=== PATIENT | male | born 1960 | race Caucasian/White ===

== ENCOUNTER 2017-04-29 16:32 | Emergency (ER) | payer MEDICAID ==
[~2017-04-29] VITALS: Ht 180.3 cm; Wt 59.0 kg
[~2017-04-29 16:32] MED LIST: CARAFATE1 G1 ORAL; NORCO 5-325 TA1 EACH ORAL; PHENOBARBITAL30 MG ORAL; ZOFRAN4 M1 ORAL
[2017-04-29] MEDS ORDERED: Methocarbamol 750mg tab ORAL ONE (17:30)
[2017-04-29] MEDS ORDERED: PHENobarbital 32.4mg tab ORAL ONE (17:45)
[2017-04-29] MEDS ORDERED: IBUPROFEN600 MG ORAL (19:55)
[2017-04-29 20:07] VITALS: BP 135/88
[2017-04-29 20:12] VITALS: BP 135/88
--- NOTE | 2017-04-29 21:19 | Emergency Room Report ---
History of Present Illness General Chief Complaint: Back Pain-No Injury Source: Patient, EMS Present Illness HPI The patient is a 56-year-old male presenting for back pain. He states that the pain occurred when moving from his wheelchair to the floor. This began 2 days prior. Pain is a 10 out of 10 dull ache to the lower back and does not radiate. Worse with movement. He denies any numbness or tingling. He denies incontinence. He denies any other symptoms including fever or chills Allergies: Coded Allergies: LEVETIRACETAM (Unverified Allergy, Unknown, 04/27/16) PENICILLINS (Unverified Allergy, Unknown, 09/14/14) PHENYTOIN (Unverified Allergy, Unknown, 04/27/16) Patient History Past Medical History: see triage record Pertinent Family History: none Reviewed Nursing Documentation: PMH: Agreed, PSxH: Agreed Nursing Documentation-PMH Past Medical History: No History, Except For History Of Psychiatric Problem: Yes Hx Seizures: Yes Review of Systems All Other Systems: negative except mentioned in HPI Physical Exam Vital Signs Date Time Temp Pulse Resp B/P (MAP) Pulse Ox O2 Delivery O2 Flow Rate FiO2 04/29/17 16:31 98.2 110 20 149/98 98 Room Air Sp02 EP Interpretation: reviewed, normal General Appearance: no apparent distress, alert, GCS 15, non-toxic Head: normocephalic, atraumatic Eyes: bilateral eye normal inspection, bilateral eye PERRL ENT: hearing grossly normal, normal pharynx, no angioedema, normal voice Neck: full range of motion, supple/symm/no masses Gastrointestinal: normal bowel sounds, non tender, soft, non-distended, no guarding, no rebound Musculoskeletal: back normal, gait/station normal, normal range of motion, tender - bilat lumbar paraspinal muscles Neurologic: alert, oriented x3, responsive, motor strength/tone normal, sensory intact, speech normal Psychiatric: judgement/insight normal, memory normal, mood/affect normal, no suicidal/homicidal ideation Skin: normal color, no rash, warm/dry, well hydrated Medical Decision Making PA Attestation Dr. Pike is my supervising physician. Patient management was discussed with my supervising physician Diagnostic Impression: Primary Impression: Muscle strain ER Course The patient is a 56-year-old male presenting for back pain Ddx considered include but not limited to lumbar strain, degenerative disease, epidural abscess, cauda equina, chronic pain, narcotic dependency. PE: NAD Tenderness to palpation over bilateral lumbar paraspinal muscles. No midline tenderness Sensation is intact. Patient is able to move both legs Is given pain medication and time to rest in the emergency department. He states that he wants to sleep here. He'll be discharged home and needs to follow up with primary doctor. ER precautions are given Last Vital Signs Date Time Temp Pulse Resp B/P (MAP) Pulse Ox O2 Delivery O2 Flow Rate FiO2 04/29/17 20:12 98.2 80 20 135/88 98 Room Air Status: improved Disposition: HOME, SELF-CARE Condition: Improved Scripts Ibuprofen* (MOTRIN*) 600 Mg Tablet 600 MG ORAL Q8H Y for For Pain, #30 TAB 0 Refills Prov: ARY ALVAREZ 04/29/17 Patient Instructions: Back Pain, Adult Additional Instructions: I discussed my findings with the patient. All questions and concerns have been answered. Treatment and medication compliance have been addressed. I advised the patient that they need to follow up with PMD in 3-5 days. Return to ED if symptoms worsen, new symptoms arise, or if needed for any reason. Patient verbalized understanding of discharge instructions. ARY ALVAREZ Apr 29, 2017 21:19
== END 2017-04-29 20:38 | disposition home or self-care (01) ==
LOC: EDBD 16:32 → EMR 18:09
DX: S39.012A Strain of muscle, fascia and tendon of lower back, initial encounter (principal); X50.9XXA Other and unspecified overexertion or strenuous movements or postures, initial encounter; Y92.89 Other specified places as the place of occurrence of the external cause; Z88.0 Allergy status to penicillin; Z88.8 Allergy status to other drugs, medicaments and biological substances
CPT/HCPCS: 99284

== ENCOUNTER 2017-05-01 04:34 | Emergency (ER) | payer MEDICAID ==
[~2017-05-01] VITALS: Ht 180.3 cm; Wt 72.6 kg
[~2017-05-01 04:34] MED LIST changes: +IBUPROFEN600 MG ORAL
[2017-05-01 04:35] VITALS: BP 145/78
[2017-05-01] MEDS ORDERED: PHENOBARBITAL30 MG ORAL (04:36)
--- NOTE | 2017-05-01 05:02 | Emergency Room Report ---
History of Present Illness General Chief Complaint: Seizure Source: Patient Present Illness HPI Is a 56-year-old male with a history of seizure. He is also uses a wheelchair. He said he had a seizure about 2 hours ago. He called 911. He claimed that they took it without taking his wheelchair. Denies any symptom right now. She is hungry. We'll something to eat. No nausea no vomiting. Did have incontinence of his urine and bowel. He has similar presentation yesterday. Multiple times to the ER at [facility]. Allergies: Coded Allergies: PENICILLINS (Verified Allergy, Unknown, 05/01/17) Patient History Past Medical History: see triage record, old chart reviewed Past Surgical History: other Pertinent Family History: none Social History: Denies: smoking Immunizations: other Reviewed Nursing Documentation: PMH: Agreed, PSxH: Agreed Nursing Documentation-PMH Past Medical History: No History, Except For Hx Seizures: Yes Review of Systems Eye: Denies: eye pain, blurred vision ENT: Denies: ear pain, nose congestion, throat swelling Respiratory: Denies: cough, shortness of breath Cardiovascular: Denies: chest pain, palpitations Gastrointestinal: Denies: abdominal pain, diarrhea, nausea, vomiting Musculoskeletal: Denies: back pain, joint pain Skin: Denies: rash Neurological: Denies: headache, numbness Endocrine: Denies: increased thirst, increased urine Hematologic/Lymphatic: Denies: easy bruising All Other Systems: negative except mentioned in HPI Physical Exam Vital Signs Date Time Temp Pulse Resp B/P (MAP) Pulse Ox O2 Delivery O2 Flow Rate FiO2 05/01/17 04:29 98.4 84 16 145/78 98 Room Air vitals normal Sp02 EP Interpretation: reviewed, normal General Appearance: well appearing, no apparent distress, alert Head: normocephalic, atraumatic Eyes: bilateral eye PERRL, bilateral eye EOMI ENT: hearing grossly normal, normal pharynx Neck: full range of motion, supple, no meningismus Respiratory: chest non-tender, lungs clear, normal breath sounds Cardiovascular #1: regular rate, rhythm, no murmur Gastrointestinal: normal bowel sounds, non tender, no mass, no organomegaly, no bruit, non-distended Musculoskeletal: back normal, normal range of motion Neurologic: alert, oriented x3 Psychiatric: mood/affect normal Skin: warm/dry Medical Decision Making Diagnostic Impression: Primary Impression: Epileptic seizure, generalized ER Course Patient with a breakthrough seizure. No trauma. We'll discharge home. He ate and drinking without a problem. Last Vital Signs Date Time Temp Pulse Resp B/P (MAP) Pulse Ox O2 Delivery O2 Flow Rate FiO2 05/01/17 04:29 98.4 84 16 145/78 98 Room Air Status: improved Disposition: HOME, SELF-CARE Condition: Stable Patient Instructions: Seizure, Adult Additional Instructions: Take your seizure medication. Followup with your Dr. in 7 days. Return if worse. MC PÉREZ M.D. May 01, 2017 05:02
[2017-05-01 06:35] VITALS: BP 147/83
[2017-05-01 09:27] VITALS: BP 143/79
[2017-05-01 11:09] VITALS: BP 143/79
== END 2017-05-01 11:13 | disposition home or self-care (01) ==
LOC: EDBD 04:34 → MERGE 04:46 → EMR 04:46
DX: G40.909 Epilepsy, unspecified, not intractable, without status epilepticus (principal); Z88.0 Allergy status to penicillin; Z99.3 Dependence on wheelchair
CPT/HCPCS: 99283